=== PATIENT | female | born 1995 | race Caucasian/White ===

== ENCOUNTER 2023-03-21 13:48 | Emergency (ER) | payer OTHER ==
[~2023-03-21] VITALS: Ht 170.2 cm; Wt 86.8 kg
[2023-03-21 14:01] VITALS: TEMP 97.8
[2023-03-21] MEDS ORDERED: IMITREX100 MG PO (14:54)
[2023-03-21 15:05] VITALS: BP 123/73; PULSE 54
== END 2023-03-21 15:14 | disposition home or self-care (01) ==
LOC: COL.ER 13:48
DX: R51.9 Headache, unspecified (principal); Z86.69 Personal history of other diseases of the nervous system and sense organs
CPT/HCPCS: J1885; J2550